=== PATIENT | male | born 2000 | race Caucasian/White ===

== ENCOUNTER 2019-03-22 06:16 | Emergency (ER) | payer MEDICAID ==
--- NOTE | 2019-03-22 06:38 | EDM.PDOC ---
ED HPI GENERAL MEDICAL PROBLEM - General Chief Complaint: ENT Problem Stated Complaint: TOOTH PAIN Time Seen by Provider: 03/22/19 06:37 Source of Information: Reports: Patient, RN Notes Reviewed - History of Present Illness INITIAL COMMENTS - FREE TEXT/NARRATIVE: 18-year-old male comes in with severe dental pain. It is the right lower anterior molar that started hurting yesterday. Taken ibuprofen but not getting meaningful relief. The pain is quite severe. There is been no fever chills or other unusual symptomatology. Had not been previously giving him trouble. Right Lower Tooth/Teeth Pain Score (Numeric/FACES): 10 - Related Data Allergies Allergy/AdvReac Type Severity Reaction Status Date / Time No Known Allergies Allergy Verified 03/22/19 06:30 Home Meds: Home Meds Naproxen [Naprosyn] 500 mg PO Q12HR #14 tab 03/22/19 [Rx] Penicillin V Potassium 500 mg PO Q6HR #30 tab 03/22/19 [Rx] traMADol [Ultram] 50 mg PO Q8HR PRN #20 tab 03/22/19 [Rx] Social & Family History - Tobacco Use Smoking Status *Q: Never Smoker - Caffeine Use Caffeine Use: Reports: None - Recreational Drug Use Recreational Drug Use: No ED ROS ENT - Review of Systems Review Of Systems: See Below Constitutional: Denies: Fever, Chills HEENT: Reports: Dental Pain. Denies: Throat Pain Respiratory: Denies: Shortness of Breath Cardiovascular: Denies: Chest Pain GI/Abdominal: Denies: Abdominal Pain, Nausea, Vomiting Skin: Denies: Rash ED EXAM, ENT - Physical Exam Exam: See Below General Appearance: Alert, Moderate Distress Eye Exam: Bilateral Eye: PERRL Mouth/Throat: Dental Pain (Right lower anterior molar), Other (There is tenderness of the right lower anterior molar, no visible swelling or drainage). No: Pharyngeal Erythema, Throat Swelling Neck: Supple Respiratory/Chest: No Respiratory Distress, Lungs Clear, Normal Breath Sounds Cardiovascular: Regular Rate, Rhythm Course - Vital Signs Last Recorded V/S: Last Vital Signs Temp 98 F 03/22/19 06:25 Pulse 69 03/22/19 06:25 Resp 20 03/22/19 06:25 BP 146/93 H 03/22/19 06:25 Pulse Ox 100 03/22/19 06:25 - Orders/Labs/Meds Meds: Medications Discontinued Medications Generic Name Dose Route Start Last Admin Trade Name Alin PRN Reason Stop Dose Admin Tramadol HCl 50 mg 03/22/19 06:46 03/22/19 06:51 Ultram PO 03/22/19 06:47 50 mg ONETIME ONE Administration Departure - Departure Time of Disposition: 07:30 Disposition: Home, Self-Care 01 Condition: Fair Clinical Impression: Pain, dental - Discharge Information Prescriptions: Penicillin V Potassium 500 mg PO Q6HR #30 tab traMADol [Ultram] 50 mg PO Q8HR PRN #20 tab PRN Reason: Pain Naproxen [Naprosyn] 500 mg PO Q12HR #14 tab Referrals: PCP,None [Primary Care Provider] - Forms: ED Department Discharge Additional Instructions: Pen VK 500 mg 4 times daily for the next week or until gone, Naprosyn 500 mg twice daily as needed for pain and dental inflammation, Tylenol in addition up to 3 times daily for further pain relief, he may take tramadol 50 mg every 8 hours in addition if needed for severe pain not relieved by above the above medications. See dentist as soon as possible.
[2019-03-22] MEDS ORDERED: traMADol 50 MG Tab PO ONE (06:46)
== END 2019-03-22 07:15 | disposition home or self-care (01) ==
LOC: JD.ED 06:16
DX: K08.89 Other specified disorders of teeth and supporting structures (principal)
CPT/HCPCS: 99282; A9270; 99283